=== PATIENT | female | born 1970 | race Two or more races ===

== ENCOUNTER 2023-08-28 11:19 | Emergency (ER) | payer SELFPAY ==
[2023-08-28 11:26] VITALS: BP 163/89; PULSE 78; RESP 19; TEMP 98.9; BMI 38.7
[2023-08-28] MEDS ORDERED: NEOMYCIN/POLYMYXN/HC OTIC SOLUTION 10 ML BOTTLE ONE (12:05)
[2023-08-28] MEDS: NEOMYCIN/POLYMYXN/HC OTIC SUSPENSION 10 ML BOTTLE AS ONE (12:19)
[2023-08-28] MEDS: IBUPROFEN 600 MG TABLET (FP) PO ONE (12:19)
[2023-08-28] MEDS: NEOMYCIN/POLYMYX/HC OPHTHALMIC SUSPENSION 7.5 ML BOTTLE OD ONE (12:19)
[2023-08-28] MEDS: SODIUM CHLORIDE 1,000 ML IV STA (12:20)
== END 2023-08-28 13:27 | disposition home or self-care (01) ==
LOC: JERFT 11:19
DX: H92.02 Otalgia, left ear (principal); H93.8X2 Other specified disorders of left ear; H60.92 Unspecified otitis externa, left ear
CPT/HCPCS: 99283-25